=== PATIENT | male | born 1980 | race African-American/Black ===

== ENCOUNTER 2024-09-15 17:05 | Emergency (ER) | payer SELFPAY ==
[~2024-09-15] VITALS: Ht 185.4 cm; Wt 100.0 kg
[2024-09-15 17:12] VITALS: BP 119/66; PULSE 114; RESP 18; TEMP 36.7; O2SAT 98
== END 2024-09-15 17:45 | disposition left against medical advice (07) ==
LOC: ER 17:05
DX: F10.129 Alcohol abuse with intoxication, unspecified (principal); Y90.9 Presence of alcohol in blood, level not specified
CPT/HCPCS: 99283

== ENCOUNTER 2024-10-04 07:19 | Emergency (ER) | payer OTHER ==
[~2024-10-04] VITALS: Ht 182.9 cm; Wt 82.0 kg
[2024-10-04 07:30] VITALS: O2SAT 99
[2024-10-04 08:03] VITALS: BP 128/71; PULSE 89; RESP 18; TEMP 36.7; O2SAT 99
== END 2024-10-04 08:12 | disposition home or self-care (01) ==
LOC: ER 07:19
DX: S01.81XD Laceration without foreign body of other part of head, subsequent encounter (principal); X58.XXXD Exposure to other specified factors, subsequent encounter
CPT/HCPCS: 99281; Z7610 ×3

== ENCOUNTER 2024-11-22 08:30 | Emergency (ER) | payer OTHER ==
[~2024-11-22] VITALS: Ht 182.9 cm; Wt 83.9 kg
[2024-11-22 08:35] VITALS: O2SAT 100
[2024-11-22] MEDS ORDERED: AMOX1TAB16 MT (08:58)
[2024-11-22] MEDS ORDERED: FLUT9.9S LEFTNSTRL (08:58)
[2024-11-22 09:10] VITALS: BP 144/103; PULSE 85; RESP 16; TEMP 37.1; O2SAT 98
== END 2024-11-22 09:15 | disposition home or self-care (01) ==
LOC: ER 08:30
DX: J32.9 Chronic sinusitis, unspecified (principal)
CPT/HCPCS: 99283

== ENCOUNTER 2025-02-20 09:35 | Emergency (ER) | payer OTHER ==
[~2025-02-20] VITALS: Ht 182.9 cm; Wt 84.0 kg
[~2025-02-20 09:35] MED LIST: AMOX1TAB16 MT; FLUT9.9S LEFTNSTRL
[2025-02-20 09:40] VITALS: O2SAT 100
[2025-02-20] MEDS ORDERED: NAPR-681 MT (11:56)
[2025-02-20] MEDS ORDERED: CLIN-194 MT (11:56)
[2025-02-20 12:10] VITALS: BP 140/88; PULSE 99; RESP 15; TEMP 36.8; O2SAT 100
== END 2025-02-20 12:12 | disposition home or self-care (01) ==
LOC: ER 09:35
DX: L03.211 Cellulitis of face (principal); Z79.1 Long term (current) use of non-steroidal anti-inflammatories (NSAID)
CPT/HCPCS: 99283

== ENCOUNTER 2025-02-28 09:48 | Emergency (ER) | payer OTHER ==
[~2025-02-28] VITALS: Ht 182.9 cm; Wt 85.0 kg
[~2025-02-28 09:48] MED LIST changes: +CLIN-194 MT; +NAPR-681 MT
[2025-02-28 10:02] VITALS: O2SAT 99
[2025-02-28] MEDS: SODIUM CHLORIDE 0.9% (SEPSIS BOLUS) IV ONE (11:16)
[2025-02-28] MEDS: PIPERACILLIN/TAZO 3.375G/50ML 50 ML IV ONE (11:20)
[2025-02-28] MEDS: KETOROLAC 30MG/ML VIAL IV ONE (11:20)
[2025-02-28 11:23] LABS: BASOPHILS % 0.5 % (0.0-2.0); EOSINOPHILS % 0.3 % (0.0-5.0); HEMATOCRIT. 36.1 % (42.0-52.0); HEMOGLOBIN. 12.0 g/dL (14.0-18.0); LYMPHOCYTES % 20.3 % (20.0-50.0); MEAN PLATELET VOLUME 7.0 fl (7.4-10.4); MONOCYTES % 6.3 % (2.0-8.0); NEUTROPHILS % 72.6 % (40.0-76.0); PLATELET 729 x1000/uL (130-400); RED BLOOD CELL COUNT 3.90 mill/uL (4.7-6.1); RED CELL DISTRIBUTION WIDTH 15.3 % (11.6-14.6)
[2025-02-28 11:31] LABS: CREATININE 0.7 mg/dL (0.6-1.3); UREA NITROGEN BLOOD 9 mg/dL (9-23)
[2025-02-28 11:33] LABS: ASPARTATE AMINOTRANSFERASE 11 IU/L (<34); BILIRUBIN DIRECT < 0.1 mg/dL (<=3.0); BILIRUBIN TOTAL 0.4 mg/dL (0.1-1.0); PROTEIN TOTAL 7.7 g/dL (6.0-8.3)
[2025-02-28] MEDS: VANCOMYCIN 1G PREMIX 200 ML IV ONE (11:38)
[2025-02-28 13:28] LABS: INR 1.1
[2025-02-28] MEDS: IOHEXOL-300 100 ML BOTTLE ONE (13:38)
[2025-02-28 13:47] LABS: CLARITY URINE CLEAR (CLEAR); COLOR URINE YELLOW (YELLOW); GLUCOSE URINE NEGATIVE (NEGATIVE); KETONES URINE NEGATIVE (NEGATIVE); LEUKOCYTE ESTERASE URINE NEGATIVE (NEGATIVE); NITRITE URINE NEGATIVE (NEGATIVE); OCCULT BLOOD URINE NEGATIVE (NEGATIVE); PH URINE 6.5 (4.5-8.0); PROTEIN URINE NEGATIVE (NEGATIVE); SPECIFIC GRAVITY URINE 1.008 (1.005-1.030); UROBILINOGEN URINE 0.2 E.U./dL (0.2-1.0)
[2025-02-28] MEDS ORDERED: NALOXONE HCL 0.4MG/ML VIAL IV PRN (20:30)
[2025-02-28] MEDS: HYDROCODONE/ACETAMINOPHEN 10/325MG TABLET PO PRN (20:42)
[2025-02-28 21:29] VITALS: BP 141/89; PULSE 91; RESP 22; TEMP 37; O2SAT 99
== END 2025-02-28 21:55 | disposition short-term general hospital (02) ==
LOC: ER 09:48 → EDBEDREQ 16:13 → EDBEDREQTM 16:13 → ER 21:55 → CMPBEDREQ 03-01 08:45
DX: S02.2XXA Fracture of nasal bones, initial encounter for closed fracture (principal); K05.6 Periodontal disease, unspecified; L02.91 Cutaneous abscess, unspecified; L03.90 Cellulitis, unspecified; Z79.1 Long term (current) use of non-steroidal anti-inflammatories (NSAID); Z79.899 Other long term (current) drug therapy; R60.0 Localized edema; X58.XXXA Exposure to other specified factors, initial encounter; Y93.89 Activity, other specified; Y92.89 Other specified places as the place of occurrence of the external cause; Y99.8 Other external cause status
CPT/HCPCS: 80076; 80048; 81003; 83605; 85025; 85610; 87040; 87086; 36415; 84145; 70487; 93005; 96368; 96365; 96375; 99285; Q9967; J1885; J2543; J3373; J7030; Z7610 ×4